=== PATIENT | female | born 1960 | race Caucasian/White ===

== ENCOUNTER 2017-09-21 17:51 | Inpatient (IN) | payer OTHER ==
[2017-09-21] MEDS: SOD CHLORIDE 0.9% 100 ML (18:03)
[2017-09-21] MEDS: IOHEXOL 100 ML (18:03)
[2017-09-21 18:05] LABS: ADD MAN DIFF? NO
[2017-09-21 18:07] LABS: BASOPHILS % 0.4 % (0.0-2.0); EOSINOPHILS # 0.1 10^3/ul (0.0-0.5); EOSINOPHILS % 1.1 % (0.0-7.0); HEMATOCRIT 42.9 % (37.0-47.0); HEMOGLOBIN 14.6 g/dl (12.0-16.0); LYMPHOCYTES # 2.9 10^3/ul (0.8-2.9); LYMPHOCYTES % 40.9 % (15.0-51.0); MEAN CORPUSCULAR HEMOGLOBIN 30.9 pg (29.0-33.0); MEAN CORPUSCULAR VOLUME 90.7 fl (82.0-101.0); MEAN PLATELET VOLUME 10.5 fl (7.4-10.4); MONOCYTE # 0.5 10^3/ul (0.3-0.9); MONOCYTES % 7.2 % (0.0-11.0); NEUTROPHIL # 3.5 10^3/ul (1.6-7.5); NEUTROPHILS % 50.3 % (39.0-77.0); PLATELET COUNT 225 10^3/UL (140-415); RED BLOOD COUNT 4.73 10^6/ul (4.20-5.40); RED CELL DISTRIBUTION WIDTH 12.3 % (11.5-14.5)
[2017-09-21 18:25] LABS: ANION GAP 13 (8-16); BLOOD UREA NITROGEN 14 mg/dl (7-20); CARBON DIOXIDE 32 mmol/L (21-31); CHLORIDE 105 mmol/L (97-110); CHOL/HDL RATIO 4.7 RATIO; CHOLESTEROL 291 mg/dl (100-200); CREATININE 0.83 mg/dl (0.44-1.00); GLUCOSE 114 mg/dl (70-220); HDL CHOLESTEROL 61 mg/dl (37-92); LDL CHOLESTEROL,CALCULATED 195 mg/dl; POTASSIUM 3.5 mmol/L (3.5-5.1); SODIUM 146 mmol/L (135-144); TRIGLYCERIDES 173 mg/dl (0-149)
[2017-09-21 18:30] LABS: INR 0.93; PROTIME 12.6 Sec (11.9-14.9)
[2017-09-21 18:31] LABS: PARTIAL THROMBOPLASTIN TIME 31.2 Sec (25.0-35.0)
[2017-09-21 18:39] LABS: TROPONIN-I < 0.012 ng/ml (0.00-0.12)
[2017-09-21] MEDS: ASPIRIN 81 MG TAB PO (19:28)
[2017-09-21] MEDS ORDERED: ONDANSETRON 4 MG INJ IV (19:30)
[2017-09-21] MEDS ORDERED: ACETAMINOPHEN 325 MG TAB PO (19:30)
[2017-09-21 19:53] LABS: HEMOGLOBIN A1C 5.1 % (0-5.9)
[2017-09-22] MEDS ORDERED: ACETAMINOPHEN 325 MG TAB PO (06:00)
[2017-09-22] MEDS ORDERED: ONDANSETRON 4 MG INJ IV (06:00)
[2017-09-22] MEDS: ASPIRIN (EC) 81 MG TAB PO (08:51)
[2017-09-22 10:22] LABS: CHOLESTEROL 264 mg/dl (100-200)
[2017-09-22 10:22] LABS: CHOL/HDL RATIO 4.7 RATIO; HDL CHOLESTEROL 56 mg/dl (37-92); LDL CHOLESTEROL,CALCULATED 190 mg/dl; TRIGLYCERIDES 92 mg/dl (0-149)
[2017-09-22] MEDS ORDERED: ATORVASTATIN 10 MG TAB PO (21:00)
[2017-09-22] MEDS: ATORVASTATIN 40 MG TAB PO (21:19)
[2017-09-23] MEDS: ASPIRIN (EC) 81 MG TAB PO (08:05)
== END 2017-09-23 17:32 | disposition home or self-care (01) | DRG 69 ==
LOC: E/R 17:51 → MS3 19:21
DX: G45.9 Transient cerebral ischemic attack, unspecified (principal); F41.9 Anxiety disorder, unspecified; E78.00 Pure hypercholesterolemia, unspecified; R00.1 Bradycardia, unspecified; K11.9 Disease of salivary gland, unspecified
CPT/HCPCS: 36415; 70450; 70496; 70498; 70553; 71045; 72156; 76536; 80048; 80061; 83036; 84484; 85025; 85610; 85730; 92610; 93005; 93306; 93880; 99291-25